=== PATIENT | female | born 1955 ===

== ENCOUNTER 2021-03-01 09:20 | Emergency (ER) | payer MEDICARE, OTHER ==
[2021-03-01 09:33] VITALS: BP 0/0
== END 2021-03-01 09:33 | disposition expired ==
LOC: ED 09:20
PROC: 5A12012 Performance of Cardiac Output, Single, Manual (ICD-10-PCS; principal; 2021-03-01)
DX: I46.9 Cardiac arrest, cause unspecified (principal); E11.9 Type 2 diabetes mellitus without complications; I10 Essential (primary) hypertension